=== PATIENT | male | born 2000 | race Asian ===

== ENCOUNTER 2021-08-22 21:54 | Inpatient (IN) | payer OTHER ==
[~2021-08-22] VITALS: Ht 175.3 cm; Wt 79.0 kg
[2021-08-22 22:50] LABS: HEMATOCRIT 47.3 % (42.0-52.0); HEMOGLOBIN 15.7 g/dl (13.5-17.5); MEAN CORPUSCULAR HEMOGLOBIN 27.3 pg (27.0-33.0); MEAN CORPUSCULAR HGB CONC 33.2 g/dl (32.0-36.5); MEAN CORPUSCULAR VOLUME 82.3 fl (80.0-96.0); PLATELET COUNT, AUTOMATED 365 10^3/uL (150-450); RED BLOOD COUNT 5.75 10^6/uL (4.30-6.10); WHITE BLOOD COUNT 7.3 10^3/uL (4.0-10.0)
[2021-08-22 23:02] LABS: AMPHETAMINES LEVEL URINE NEGATIVE (NEGATIVE); BARBITURATES URINE NEGATIVE (NEGATIVE); BENZODIAZEPINES URINE NEGATIVE (NEGATIVE); CANNABINOIDS URINE NEGATIVE (NEGATIVE); COCAINE METABOLITE URINE NEGATIVE (NEGATIVE); METHADONE URINE NEGATIVE (NEGATIVE); OPIATES URINE NEGATIVE (NEGATIVE); PHENCYCLIDINE URINE NEGATIVE (NEGATIVE)
[2021-08-22 23:23] LABS: ACETAMINOPHEN LEVEL < 2.0 UG/ML (10.0-30.0); ALBUMIN 4.2 GM/DL (3.2-5.2); ALT/SGPT 29 U/L (12-78); BILIRUBIN,DIRECT 0.1 MG/DL (0.0-0.2); BILIRUBIN,TOTAL 0.3 MG/DL (0.2-1.0); BLOOD UREA NITROGEN 19 MG/DL (7-18); CALCIUM LEVEL 9.4 MG/DL (8.5-10.1); CARBON DIOXIDE LEVEL 30 MEQ/L (21-32); CHLORIDE LEVEL 103 MEQ/L (98-107); CREATININE FOR GFR 1.04 MG/DL (0.70-1.30); ETHYL ALCOHOL (ETHANOL) < 0.003 % (0.000-0.010); GLUCOSE, FASTING 94 MG/DL (70-100); SALICYLATE LEVEL < 1.7 MG/DL (5.0-30.0); SODIUM LEVEL 139 MEQ/L (136-145); TOTAL PROTEIN 8.1 GM/DL (6.4-8.2)
[2021-08-23] MEDS ORDERED: MOM 30ML SUSPENSION UDC PO PRN (13:50)
[2021-08-23] MEDS ORDERED: ACETAMINOPHEN TAB 650MG DOSE (2X325MG) PO PRN (13:50)
[2021-08-23] MEDS ORDERED: traZODone 50 MG TAB PO PRN (13:50)
[2021-08-23] MEDS ORDERED: MAALOX 30 ML SUSP *UDC PO PRN (13:50)
[2021-08-23 15:47] VITALS: BP 120/82
[2021-08-24 06:17] VITALS: BP 121/56
[2021-08-24] MEDS ORDERED: HOME MED LIST COMPLETE! XX SCH (09:40)
[2021-08-24 16:47] VITALS: BP 137/90
[2021-08-25 06:51] VITALS: BP 110/61
[2021-08-26 06:52] VITALS: BP 125/75
[2021-08-26 18:15] VITALS: BP 134/80
[2021-08-27 06:36] VITALS: BP 134/79
[2021-08-27] MEDS: buPROPion **XL** TABLET 150MG (WELLBUTRIN XL) PO SCH (13:14)
[2021-08-27 17:51] VITALS: BP 137/80
[2021-08-28 06:30] VITALS: BP 113/63
[2021-08-28] MEDS: buPROPion **XL** TABLET 150MG (WELLBUTRIN XL) PO SCH (09:42)
[2021-08-28] MEDS ORDERED: BUPR150T12 PO (11:17)
== END 2021-08-28 13:10 | disposition home or self-care (01) | DRG 885 ==
LOC: M ED 21:54 → M ED INP 08-23 13:50 → M PSY 08-23 15:36
PROVIDERS: ADMIT Student in an Organized Health Care Education/Training Program; ATTEND Student in an Organized Health Care Education/Training Program
DX: F33.1 Major depressive disorder, recurrent, moderate (principal); U07.1 COVID-19; R45.851 Suicidal ideations; Z62.820 Parent-biological child conflict; Z63.8 Other specified problems related to primary support group

== ENCOUNTER 2022-03-05 17:19 | Inpatient (IN) | payer OTHER ==
[~2022-03-05] VITALS: Ht 175.3 cm; Wt 98.9 kg
[~2022-03-05 17:19] MED LIST: BUPR150T12 PO
[2022-03-05 18:38] LABS: HEMATOCRIT 43.5 % (42.0-52.0); HEMOGLOBIN 14.7 g/dl (13.5-17.5); MEAN CORPUSCULAR HEMOGLOBIN 28.2 pg (27.0-33.0); MEAN CORPUSCULAR HGB CONC 33.8 g/dl (32.0-36.5); MEAN CORPUSCULAR VOLUME 83.5 fl (80.0-96.0); PLATELET COUNT, AUTOMATED 293 10^3/uL (150-450); RED BLOOD COUNT 5.21 10^6/uL (4.30-6.10); WHITE BLOOD COUNT 6.3 10^3/uL (4.0-10.0)
[2022-03-05 19:08] LABS: AMPHETAMINES LEVEL URINE NEGATIVE (NEGATIVE); BARBITURATES URINE NEGATIVE (NEGATIVE); BENZODIAZEPINES URINE NEGATIVE (NEGATIVE); CANNABINOIDS URINE NEGATIVE (NEGATIVE); COCAINE METABOLITE URINE NEGATIVE (NEGATIVE); METHADONE URINE NEGATIVE (NEGATIVE); OPIATES URINE NEGATIVE (NEGATIVE); PHENCYCLIDINE URINE NEGATIVE (NEGATIVE)
[2022-03-05 19:17] LABS: ACETAMINOPHEN LEVEL 2.8 UG/ML (10.0-30.0); ALT/SGPT 58 U/L (12-78); BILIRUBIN,DIRECT 0.1 MG/DL (0.0-0.2); BILIRUBIN,TOTAL 0.5 MG/DL (0.2-1.0); BLOOD UREA NITROGEN 13 MG/DL (7-18); CALCIUM LEVEL 9.5 MG/DL (8.5-10.1); CARBON DIOXIDE LEVEL 27 MEQ/L (21-32); CHLORIDE LEVEL 106 MEQ/L (98-107); CREATININE FOR GFR 1.15 MG/DL (0.70-1.30); ETHYL ALCOHOL (ETHANOL) < 0.003 % (0.000-0.010); GLOMERULAR FILTRATION RATE > 60.0 (>60); GLUCOSE, FASTING 87 MG/DL (70-100); POTASSIUM SERUM 3.8 MEQ/L (3.5-5.1); SALICYLATE LEVEL < 1.7 MG/DL (5.0-30.0); SODIUM LEVEL 140 MEQ/L (136-145); TOTAL PROTEIN 7.5 GM/DL (6.4-8.2)
[2022-03-06] MEDS ORDERED: MAALOX 30 ML SUSP *UDC PO PRN (02:25)
[2022-03-06] MEDS ORDERED: traZODone 50 MG TAB PO PRN (02:25)
[2022-03-06] MEDS ORDERED: MOM 30ML SUSPENSION UDC PO PRN (02:25)
[2022-03-06] MEDS ORDERED: ACETAMINOPHEN TAB 650MG DOSE (2X325MG) PO PRN (02:25)
[2022-03-06 03:18] VITALS: BP 117/79
[2022-03-06] MEDS ORDERED: HOME MED LIST COMPLETE! XX SCH (03:25)
[2022-03-06 18:32] VITALS: BP 124/60
[2022-03-07 07:08] VITALS: BP 118/71
[2022-03-07] MEDS: FLUoxetine 20MG CAP PO SCH (09:45)
[2022-03-07 18:38] VITALS: BP 144/78
[2022-03-08 07:02] VITALS: BP 163/92
[2022-03-08] MEDS: FLUoxetine 20MG CAP PO SCH (08:32)
[2022-03-08 18:37] VITALS: BP 134/78
[2022-03-09 06:30] VITALS: BP 133/80
[2022-03-09] MEDS: FLUoxetine 20MG CAP PO SCH (09:31)
[2022-03-09 18:00] VITALS: BP 130/85
[2022-03-10 06:28] VITALS: BP 128/90
[2022-03-10] MEDS: FLUoxetine 20MG CAP PO SCH (08:18)
[2022-03-10 18:00] VITALS: BP 159/89
[2022-03-11 07:02] VITALS: BP 118/63
[2022-03-11] MEDS: FLUoxetine 20MG CAP PO SCH (08:29)
[2022-03-11 18:00] VITALS: BP 131/67
[2022-03-12 06:32] VITALS: BP 129/75
[2022-03-12] MEDS: FLUoxetine 20MG CAP PO SCH (08:50)
[2022-03-12] MEDS ORDERED: FLUO20CA22 PO (10:15)
[2022-03-12] MEDS ORDERED: TRAZ-252 PO (10:15)
== END 2022-03-12 13:55 | disposition home or self-care (01) | DRG 881 ==
LOC: M ED 17:19 → M ED INP 03-06 02:22 → M PSY 03-06 03:14
PROVIDERS: ADMIT Psychiatry & Neurology Psychiatry; ATTEND Psychiatry & Neurology Psychiatry
DX: F43.21 Adjustment disorder with depressed mood (principal); F32.A Depression, unspecified; Z56.2 Threat of job loss; Z65.8 Other specified problems related to psychosocial circumstances; Z63.8 Other specified problems related to primary support group